=== PATIENT | male | born 1980 | race Hispanic/Latino ===

== ENCOUNTER → 2024-07-15 | Day surgery (SDC) | payer OTHER ==
[~2024-07-15] MED LIST: ASPIRIN EC81 MG PO; ATORVASTATIN CA10 MG PO; BENICAR20 MG PO; FENTANYL CITRATE/PF 100MCG/2 ML INJ ONE; LIDOCAINE HCL 2% LOCAL INJ 5 ML SDV VIAL INJ ONE; MULTI-VITAMIN1 EACH PO; PROPOFOL IV EMULSION 10 MG/ML 20 ML VIAL ONE
[2024-07-15] MEDS: LACTATED RINGER'S 1,000 ML ONE (07:40)
[2024-07-15 09:06] VITALS: TEMP 98.4
[2024-07-15 09:20] VITALS: BP 130/92; PULSE 16; RESP 16; O2SAT 99
== END | disposition home or self-care (01) ==
LOC: OR 06:08
PROVIDERS: ATTEND Internal Medicine Gastroenterology
DX: Z12.11 Encounter for screening for malignant neoplasm of colon (principal); D12.2 Benign neoplasm of ascending colon; K64.8 Other hemorrhoids; Z71.3 Dietary counseling and surveillance; G47.33 Obstructive sleep apnea (adult) (pediatric); I10 Essential (primary) hypertension; F41.9 Anxiety disorder, unspecified; Z01.810 Encounter for preprocedural cardiovascular examination; Z79.82 Long term (current) use of aspirin; Z79.899 Other long term (current) drug therapy; Z68.36 Body mass index [BMI] 36.0-36.9, adult; Z86.73 Personal history of transient ischemic attack (TIA), and cerebral infarction without residual deficits; Z87.891 Personal history of nicotine dependence
CPT/HCPCS: 45385; 88305; 93005; J2003; J2704; J3010; J7121